=== PATIENT | female | born 1955 | race Caucasian/White ===

== ENCOUNTER 2018-11-23 20:48 | Observation (INO) | payer OTHER ==
[~2018-11-23] VITALS: Ht 167.6 cm; Wt 79.3 kg
[2018-11-23] MEDS: LURASIDONE HCL 40 MG TAB (LATUDA) PO SCH (18:00)
[2018-11-23] MEDS ORDERED: ONDANSETRON 4MG/2ML VIAL (J2405) IV ONE (21:30)
[2018-11-23] MEDS ORDERED: NS 1,000 ML IV ONE (21:30)
[2018-11-23 22:09] LABS: BASO % 0.3 % (0.0-1.0); EOS % 0.1 % (0.0-3.0); HEMATOCRIT 36.1 % (36.0-47.0); HEMOGLOBIN 12.9 g/dl (12.0-15.5); LYMPH # 0.6 10^3/uL (1.5-4.5); LYMPH % 7.3 % (24.0-44.0); MEAN CORPUSCULAR HEMOGLOBIN 30.3 pg (27.0-33.0); MEAN CORPUSCULAR HGB CONC 35.7 g/dl (32.0-36.5); MEAN CORPUSCULAR VOLUME 84.7 fl (80.0-96.0); MONO # 0.4 10^3/uL (0.0-0.8); MONO % 4.6 % (0.0-5.0); NEUTROPHILS # 6.8 10^3/uL (1.8-7.7); NEUTROPHILS % 87.1 % (36.0-66.0); PLATELET COUNT, AUTOMATED 268 10^3/uL (150-450); RED BLOOD COUNT 4.26 10^6/uL (4.00-5.40); WHITE BLOOD COUNT 7.8 10^3/uL (4.0-10.0)
[2018-11-23] MEDS ORDERED: ISOVUE-370 76% 100ML VIAL (Q9967) As Ordered ONE (22:28)
[2018-11-23 22:44] LABS: OSMOLALITY SERUM 247 MOSM/KG (280-301)
[2018-11-23 22:57] LABS: ALBUMIN 4.2 GM/DL (3.2-5.2); ALT/SGPT 23 U/L (12-78); BILIRUBIN,DIRECT 0.2 MG/DL (0.0-0.2); BILIRUBIN,TOTAL 0.6 MG/DL (0.2-1.0); CK-MB VALUE MASS 2.3 NG/ML (<3.6); CPK CREATINE PHOSPHOKINASE 201 U/L (26-192); ETHYL ALCOHOL (ETHANOL) < 0.003 % (0.000-0.010); LIPASE 101 U/L (73-393); MB/CK RELATIVE INDEX 1.14 (< OR =4); TOTAL PROTEIN 7.3 GM/DL (6.4-8.2); TROPONIN I < 0.02 NG/ML (< 0.10)
[2018-11-23] MEDS ORDERED: LORazepam 2 MG/ML VIAL (J2060) IV STA (23:19)
[2018-11-23 23:32] LABS: OSMOLALITY URINE 177 MOSM/KG (500-800)
[2018-11-23 23:33] LABS: APPEARANCE, URINE CLEAR (CLEAR); BACTERIA, URINE AUTO NEGATIVE (NEGATIVE); BILIRUBIN, URINE AUTO NEGATIVE (NEGATIVE); BLOOD, URINE BLOOD NEGATIVE (NEGATIVE); COLOR, URINE COLORLESS (YELLOW); GLUCOSE, URINE (UA) AUTO NEGATIVE (NEGATIVE); KETONE, URINE AUTO 1+ mg/dL (NEGATIVE); LEUKOCYTE ESTERASE, URINE AUTO NEGATIVE (NEGATIVE); NITRITE, URINE AUTO NEGATIVE (NEGATIVE); PROTEIN, URINE AUTO NEGATIVE (NEGATIVE); RBC, URINE AUTO 1 /HPF (0-3); SPECIFIC GRAVITY URINE AUTO 1.009 (1.002-1.035); SQUAMOUS EPITHELIAL CELL UR AU 0 /HPF (0-6); UROBILINOGEN, URINE AUTO 0.2 mg/dL (0.0-2.0); WBC, URINE AUTO 0 /HPF (0-3)
[2018-11-23] MEDS ORDERED: TRIL1TAB PO (23:42)
[2018-11-23] MEDS ORDERED: TRIA0.2571 PO (23:42)
[2018-11-23] MEDS ORDERED: LATU40TA PO (23:42)
[2018-11-23] MEDS ORDERED: ZADI1DRO OU (23:42)
[2018-11-23] MEDS ORDERED: BUSP30TA PO (23:42)
[2018-11-23] MEDS ORDERED: EXCETAB22 PO (23:42)
[2018-11-23] MEDS ORDERED: CETI10CH PO (23:42)
[2018-11-23] MEDS ORDERED: SYNT75TA PO (23:42)
[2018-11-23] MEDS ORDERED: PSEU120T3 PO (23:42)
[2018-11-23] MEDS ORDERED: ALL10TAB28 PO (23:43)
[2018-11-23] MEDS ORDERED: FLUTISP NARES (23:44)
[2018-11-23 23:52] LABS: AMPHETAMINES LEVEL URINE NEGATIVE (NEGATIVE); BARBITURATES URINE NEGATIVE (NEGATIVE); BENZODIAZEPINES URINE NEGATIVE (NEGATIVE); CANNABINOIDS URINE NEGATIVE (NEGATIVE); COCAINE METABOLITE URINE NEGATIVE (NEGATIVE); METHADONE URINE NEGATIVE (NEGATIVE); OPIATES URINE NEGATIVE (NEGATIVE); PHENCYCLIDINE URINE NEGATIVE (NEGATIVE); SODIUM,RANDOM URINE 55 MEQ/L
--- NOTE | 2018-11-24 00:05 | REPVR ---
EXAM: CT Abdomen and Pelvis With Contrast EXAM DATE/TIME: 11/23/2018 10:35 PM CLINICAL HISTORY: 63 years old, female; Nausea and vomiting; Abdominal pain; Generalized; Additional info: Pain, n/v/d TECHNIQUE: Imaging protocol: Axial computed tomography images of the abdomen and pelvis with intravenous contrast. Coronal and sagittal reformatted images were created and reviewed. Radiation optimization: All CT scans at this facility use at least one of these dose optimization techniques: automated exposure control; mA and/or kV adjustment per patient size (includes targeted exams where dose is matched to clinical indication); or iterative reconstruction. Contrast material: ISOVUE 370; Contrast volume: 100 ml; Contrast route: IV; COMPARISON: No relevant prior studies available. FINDINGS: Mediastinum: Minimal hiatal hernia. Liver: Anterior right hepatic cyst measuring 12 mm with a Hounsfield measurement of -4. Low attenuation area in the posterior right hepatic lobe measuring 15 mm with nodular peripheral enhancement consistent with a hemangioma. Gallbladder and bile ducts: There are a few small gallstones in the gallbladder. Pancreas: Normal. No ductal dilation. Spleen: 8mm low attenuation lesion in the posterior spleen which is nonspecific. Adrenals: Normal. No mass. Kidneys and ureters: Normal. No hydronephrosis. Stomach and bowel: Much of the colon is collapsed or contracted. Minimal wall thickening is not excluded. No pericolonic induration. Appendix: A normal appendix is seen. Intraperitoneal space: Normal. No free air. No significant fluid collection. Vasculature: Normal. No abdominal aortic aneurysm. Lymph nodes: Normal. No enlarged lymph nodes. Bladder: Unremarkable as visualized. Reproductive: Status post hysterectomy. Bones/joints: No acute fracture. No dislocation. Soft tissues: Unremarkable. IMPRESSION: 1. Question of minimal nonspecific pancolitis. 2. Status post hysterectomy. 3. Minimal cholelithiasis. 4. Minimal hiatal hernia Electronically signed by: Ovidio Encarnacion On 11/24/2018 00:05:07 AM
[2018-11-24] MEDS: NS 1,000 ML IV SCH ×2 (01:15→11:29)
--- NOTE | 2018-11-24 01:28 | HPEPDOC ---
General Date of Admission 11/24/2018 Date of Service: Nov 24, 2018 Attending Physician: VESTA ALVAREZ MD Chief Complaint The patient is a 63-year-old female admitted with a reason for visit of Nausea. History of Present Illness Patient is a 63-year-old female, primary medical history significant for hypothyroidism, PTSD, on multiple anti-psychiatric medications, presenting to the emergency room on account of sudden onset nausea, vomiting, diarrhea. In the emergency room, sodium was found to be critically low at 118. Urinalysis had 1+ ketones with a random osmolality of 177. CBC was within normal limits. CT abdomen and pelvis with contrast showed anterior right hepatic cyst measuring 12 mm. Question of minimal nonspecific pancolitis. Patient thinks she may have had some food poisoning. She describes nausea, vomiting, diarrhea, as really violent and lasting for a couple of hours. She had multiple episodes about 3 or 4 times at a point was lightheaded and dizzy and unable to get up from the floor and had to sit on the floor for a little while. She called her friend who called 911 and she was brought to the emergency room. At time of evaluation was still nauseous with some abdominal pain but states symptoms were improved. Home Medications Scheduled Buspirone HCl (Buspirone HCl) 30 Mg Tablet, 30 MG PO Q4H, (Reported) Cetirizine HCl (Cetirizine HCl) 10 Mg Tablet, 10 MG PO DAILY, (Reported) Levothyroxine Sodium (Synthroid) 75 Mcg Tablet, 75 MCG PO DAILY, (Reported) Lurasidone Hydrochloride (Latuda) 40 Mg Tablet, 20 MG PO QHS, (Reported) TAKES WITH 300 FRANCISCO JAVIER MEAL Oxcarbazepine (Trileptal) 300 Mg Tablet, 300 MG PO Q6H, (Reported) Triazolam (Triazolam) 0.25 Mg Tablet, 0.5 MG PO QHS, (Reported) Scheduled PRN Aspirin/Acetaminophen/Caffeine (Excedrin Migraine Geltab) 1 Each Tablet, 2 TABS PO Q6H PRN for HEADACHE, (Reported) Fluticasone Propionate (Fluticasone Propionate) 16 Gm [place].susp, 2 SPRAY NARES DAILY PRN for NASAL CONGESTION, (Reported) Ketotifen Fumarate (Zaditor) 5 Ml Drops, 1 DROP OU BID PRN for ITCHING, (Reported) Pseudoephedrine HCl (Sudafed 12 Hour) 120 Mg Tablet.er, 120 MG PO Q12H PRN for CONGESTION, (Reported) Allergies Coded Allergies: SEASONAL ALLERGIES (Verified Allergy, Unknown, 11/23/18) ziprasidone (Verified Allergy, Unknown, SWELLING, 11/23/18) Past Medical History Medical History Hypothyroidism. PTSD Surgical History Hysterectomy. Left hip removal Laparoscopic surgery D&C section Abdominal surgery Family History Father: ALS Mother: Renal disease, hyperlipidemia. Siblings: Diabetes mellitus, rheumatoid arthritis A-FIB/CHADSVASC A-FIB History Current/History of A-Fib/PAF?: No Current PO Anticoag Therapy: No Review of Systems Other systems A pertinent 10 point review of systems was completed, negative except as stated in the history of presenting illness Physical Examination Other physical findings GENERAL: NAD SKIN : Warm, dry intact HEENT: Atraumatic, normocephalic, PERRL, moist mucous membrane CARDIOVASCULAR: Regular rate and rhythm, S1S2, no JVD, trace edema, distal pulses + palpable RESP: CTAB, no accessory muscle use noted ABDOMEN: BS+ +distended non tender MS: no joint deformities NEURO: Alert and oriented x 3, CN2-12 grossly intact PSYCH: no anxiety or agitation, appropriate mood and affect. Vital Signs Vital Signs Date Time Temp Pulse Resp B/P (MAP) Pulse Ox O2 Delivery O2 Flow Rate FiO2 11/23/18 23:18 78 99 11/23/18 21:02 97.4 18 140/68 (92) Room Air Laboratory Data Labs 24H Laboratory Tests 2 11/23/18 21:52: Immature Granulocyte % (Auto) 0.6, White Blood Count 7.8, Red Blood Count 4.26, Hemoglobin 12.9, Hematocrit 36.1, Mean Corpuscular Volume 84.7, Mean Corpuscular Hemoglobin 30.3, Mean Corpuscular Hemoglobin Concent 35.7, Red Cell Distribution Width 11.6, Platelet Count 268, Neutrophils (%) (Auto) 87.1H, Lymphocytes (%) (Auto) 7.3L, Monocytes (%) (Auto) 4.6, Eosinophils (%) (Auto) 0.1, Basophils (%) (Auto) 0.3, Neutrophils # (Auto) 6.8, Lymphocytes # (Auto) 0.6L, Monocytes # (Auto) 0.4, Eosinophils # (Auto) 0.0, Basophils # (Auto) 0.0, Nucleated Red Blood Cells % (auto) 0.0, Osmolality 247L, Aspartate Amino Transf (AST/SGOT) 13, Alanine Aminotransferase (ALT/SGPT) 23, Alkaline Phosphatase 67, Total Bilirubin 0.6, Direct Bilirubin 0.2, Total Creatine Kinase 201H, Creatine Kinase MB 2.3, Creatine Kinase MB Relative Index 1.14, Troponin I < 0.02, Total Protein 7.3, Albumin 4.2, Albumin/Globulin Ratio 1.35, Lipase 101, Thyroid Stimulating Hormone (TSH) 1.070, Ethyl Alcohol Level < 0.003 11/23/18 21:58: POC Glucose (Misc Panel) 135H, POC Sodium (Misc Panel) 118*L, POC Potassium (Misc Panel) 3.6, POC Chloride (Misc Panel) 83L, POC Total CO2 (Misc Panel) 23.0, POC Blood Urea Nitrogen (Misc Panel 7L, POC Ionized Calcium (Misc Panel) 4.2L, POC Creatinine (Misc Panel) 0.6, POC Hematocrit (Misc Panel) 41.0 11/23/18 23:16: Urine Appearance CLEAR, Urine Color COLORLESS, Urine pH 8.0, Urine Specific [place] 1.009, Urine Protein NEGATIVE, Urine Glucose (UA) NEGATIVE, Urine Ketones 1+H, Urine Urobilinogen 0.2, Urine Bilirubin NEGATIVE, Urine Leukocyte Esterase NEGATIVE, Urine Blood NEGATIVE, Urine Nitrite NEGATIVE, Urine WBC (Auto) 0, Urine RBC (Auto) 1, Urine Hyaline Casts (Auto) 0, Urine Bacteria (Auto) NEGATIVE, Urine Squamous Epithelial Cells 0, Urine Sperm (Auto) , Urine Random Osmolality 177L, Urine Random Sodium 55, Urine Amphetamines Screen NEGATIVE, Urine Benzodiazepines Screen NEGATIVE, Urine Opiates Screen NEGATIVE, Urine Methadone Screen NEGATIVE, Urine Barbiturates Screen NEGATIVE, Urine Phencyclidine Screen NEGATIVE, Urine Cocaine Metabolite Screen NEGATIVE, Urine Cannabinoids Screen NEGATIVE CBC/BMP Laboratory Tests 11/23/18 21:52 Red Blood Count 4.26, Mean Corpuscular Volume 84.7, Mean Corpuscular Hemoglobin 30.3, Mean Corpuscular Hemoglobin Concent 35.7, Red Cell Distribution Width 11.6, Neutrophils (%) (Auto) 87.1 H, Lymphocytes (%) (Auto) 7.3 L, Monocytes (%) (Auto) 4.6, Eosinophils (%) (Auto) 0.1, Basophils (%) (Auto) 0.3, Neutrophils # (Auto) 6.8, Lymphocytes # (Auto) 0.6 L, Monocytes # (Auto) 0.4, Eosinophils # (Auto) 0.0, Basophils # (Auto) 0.0 Assessment/Plan Hyponatremia -Presenting sodium critically low at 118 -Seizure precautions -Admit to critical care floor -Hyponatremia correction with normal saline over 24 hours -Basic metabolic panel every 6 hours for monitoring of response and adjustment of therapy Acute gastroenteritis -With non specific pancolitis seen on imaging study -Abx therapy with Cipro/flagyl -Gastric rest -Nothing by mouth except meds -Continuous normal saline -Advance diet only as tolerated -reevaluate need for surgical input/evaluation if persisting or worsening symptoms PTSD -Continue all patient's medications -Anti-emetic as needed -Low dose anxiolytic intramuscularly till able to tolerate oral medication Hypothyroidism -Continue Synthroid Abdominal pain -Pain management as needed DVT prophylaxis -Lovenox daily Plan / VTE VTE Prophylaxis Ordered?: Yes [facility] Nov 24, 2018 01:28
[2018-11-24] MEDS ORDERED: MORPHINE 4 MG/ML 1ML VIAL/SYRINGE (J2270) IV PRN (01:30)
[2018-11-24] MEDS ORDERED: EXCEDRIN MIGRAINE TABLET PO PRN (01:30)
[2018-11-24] MEDS ORDERED: FLUTICASONE PROP 0.05% NASAL SPRAY 16 GM (FLONASE) NARES PRN (01:30)
[2018-11-24] MEDS: CIPROFLOXACIN 400 MG in APPROPRIATE DILUENT 1 EA IV SCH ×2 (03:11→14:51)
[2018-11-24 03:19] LABS: BLOOD UREA NITROGEN 7 MG/DL (7-18); CALCIUM LEVEL 8.3 MG/DL (8.8-10.2); CARBON DIOXIDE LEVEL 26 MEQ/L (21-32); CHLORIDE LEVEL 96 MEQ/L (98-107); CREATININE FOR GFR 0.72 MG/DL (0.55-1.30); GLOMERULAR FILTRATION RATE > 60.0 (>45); GLUCOSE, FASTING 112 MG/DL (70-100); POTASSIUM SERUM 3.8 MEQ/L (3.5-5.1); SODIUM LEVEL 131 MEQ/L (136-145)
[2018-11-24] MEDS: metroNIDAZOLE 500 MG in APPROPRIATE DILUENT 1 EA IV SCH ×3 (04:45→20:56)
[2018-11-24] MEDS: busPIRone 10 MG TAB PO SCH ×5 (05:00→20:55)
[2018-11-24] MEDS: LORazepam 2 MG/ML VIAL (J2060) IM PRN ×2 (05:49→11:23)
[2018-11-24] MEDS: ONDANSETRON 4MG/2ML VIAL (J2405) IV PRN ×2 (05:49→11:27)
[2018-11-24] MEDS: LEVOTHYROXINE 75MCG TABLET (0.075MG) PO SCH (06:00)
[2018-11-24] MEDS: OXcarbazepine 300 MG TAB PO SCH ×4 (06:00→17:58)
--- NOTE | 2018-11-24 07:18 | ECGEPIP ---
[facility] - ED Test Date: 2018-11-23 Pat Name: RAMONA PAGAN Department: Room: [place] [address] Gender: Female Project Systems Engineer: luz : [id number] Requested By: JEAN-PAUL Mondragon Order Number: [id number] Reading MD: Ton Kc Measurements Intervals [place] Rate: 70 P: 56 AK: 148 QRS: 4 QRSD: 90 T: 23 QT: 422 QTc: 456 Interpretive Statements SINUS RHYTHM POSSIBLE LEFT ATRIAL ENLARGEMENT NO PRIORS FOR COMPARISON Electronically Signed on 11-24-2018 7:18:22 EDT by Ton Kc
[2018-11-24 07:21] LABS: BLOOD UREA NITROGEN 6 MG/DL (7-18); CALCIUM LEVEL 8.5 MG/DL (8.8-10.2); CARBON DIOXIDE LEVEL 25 MEQ/L (21-32); CHLORIDE LEVEL 104 MEQ/L (98-107); CREATININE FOR GFR 0.75 MG/DL (0.55-1.30); GLOMERULAR FILTRATION RATE > 60.0 (>45); GLUCOSE, FASTING 101 MG/DL (70-100); POTASSIUM SERUM 4.2 MEQ/L (3.5-5.1); SODIUM LEVEL 136 MEQ/L (136-145)
[2018-11-24] MEDS: CETIRIZINE (ZyrTEC) 10 MG TAB PO SCH (09:59)
[2018-11-24] MEDS: ENOXAPARIN 40 MG/0.4 ML SYRINGE (J1650) SC SCH (10:00)
[2018-11-24 14:08] LABS: BLOOD UREA NITROGEN 7 MG/DL (7-18); CALCIUM LEVEL 8.2 MG/DL (8.8-10.2); CARBON DIOXIDE LEVEL 25 MEQ/L (21-32); CHLORIDE LEVEL 105 MEQ/L (98-107); CREATININE FOR GFR 0.87 MG/DL (0.55-1.30); GLOMERULAR FILTRATION RATE > 60.0 (>45); GLUCOSE, FASTING 93 MG/DL (70-100); POTASSIUM SERUM 3.8 MEQ/L (3.5-5.1); SODIUM LEVEL 135 MEQ/L (136-145)
[2018-11-24 15:55] VITALS: BP 136/66
[2018-11-24] MEDS ORDERED: SLF 3 ML SYR IV PRN (16:15)
--- NOTE | 2018-11-24 16:16 | IPNPDOC ---
Text Note Date of Service The patient was seen on 11/24/18. NOTE S: patient admitted with N/V and hypnatremia. see H&P O: Vitals as below General: pleasant NAD AAOx3 NEURO: CN3-12 intact no gross motor or sensory deficits HRRR LCTA A/P: Hyponatremia - d/c IVF as sodium has increased rapidly. no signs of neurological compromise Actue Gastroenteritis -Abx therapy with Cipro/flagyl Change from ICU to MedSurg status. if remains neurologically intact possible d/c in AM Item Value Date Time Sodium Level 135 MEQ/L L 11/24/18 1329 Sodium Level 136 MEQ/L 11/24/18 0639 Sodium Level 131 MEQ/L L 11/24/18 0253 Potassium Level 3.8 MEQ/L 11/24/18 1329 Blood Urea Nitrogen 7 MG/DL 11/24/18 1329 Creatinine 0.87 MG/DL 11/24/18 1329 VS,Fishbone, I+O VS, Fishbone, I+O Laboratory Tests 11/23/18 21:52 Red Blood Count 4.26, Mean Corpuscular Volume 84.7, Mean Corpuscular Hemoglobin 30.3, Mean Corpuscular Hemoglobin Concent 35.7, Red Cell Distribution Width 11.6, Neutrophils (%) (Auto) 87.1 H, Lymphocytes (%) (Auto) 7.3 L, Monocytes (%) (Auto) 4.6, Eosinophils (%) (Auto) 0.1, Basophils (%) (Auto) 0.3, Neutrophils # (Auto) 6.8, Lymphocytes # (Auto) 0.6 L, Monocytes # (Auto) 0.4, Eosinophils # (Auto) 0.0, Basophils # (Auto) 0.0 11/24/18 02:53 Calcium Level 8.3 L 11/24/18 06:39 Calcium Level 8.5 L 11/24/18 13:29 Calcium Level 8.2 L Vital Signs Date Time Temp Pulse Resp B/P (MAP) Pulse Ox O2 Delivery O2 Flow Rate FiO2 11/24/18 15:19 96 97 11/24/18 13:15 16 133/57 (82) Room Air 11/24/18 04:36 98.2 JIM MANNING DO Nov 24, 2018 15:49
[2018-11-24 17:05] VITALS: BP 147/86
[2018-11-24] MEDS: LURASIDONE HCL 40 MG TAB (LATUDA) PO SCH (17:57)
[2018-11-24 18:00] VITALS: BP 135/65
[2018-11-24 19:05] LABS: BLOOD UREA NITROGEN 6 MG/DL (7-18); CALCIUM LEVEL 8.3 MG/DL (8.8-10.2); CARBON DIOXIDE LEVEL 22 MEQ/L (21-32); CHLORIDE LEVEL 104 MEQ/L (98-107); CREATININE FOR GFR 0.85 MG/DL (0.55-1.30); GLOMERULAR FILTRATION RATE > 60.0 (>45); GLUCOSE, FASTING 86 MG/DL (70-100); POTASSIUM SERUM 3.5 MEQ/L (3.5-5.1); SODIUM LEVEL 132 MEQ/L (136-145)
[2018-11-24] MEDS: SLF 3 ML SYR IV SCH (20:56)
[2018-11-24 22:00] VITALS: BP 110/55
[2018-11-25] MEDS: busPIRone 10 MG TAB PO SCH ×3 (00:43→08:13)
[2018-11-25] MEDS: OXcarbazepine 300 MG TAB PO SCH ×2 (00:43→05:51)
[2018-11-25 01:51] LABS: BLOOD UREA NITROGEN 11 MG/DL (7-18); CALCIUM LEVEL 8.3 MG/DL (8.8-10.2); CARBON DIOXIDE LEVEL 27 MEQ/L (21-32); CHLORIDE LEVEL 103 MEQ/L (98-107); CREATININE FOR GFR 0.89 MG/DL (0.55-1.30); GLOMERULAR FILTRATION RATE > 60.0 (>45); GLUCOSE, FASTING 92 MG/DL (70-100); POTASSIUM SERUM 4.1 MEQ/L (3.5-5.1); SODIUM LEVEL 135 MEQ/L (136-145)
[2018-11-25 02:00] VITALS: BP 135/61
[2018-11-25] MEDS: CIPROFLOXACIN 400 MG in APPROPRIATE DILUENT 1 EA IV SCH (03:13)
[2018-11-25] MEDS: metroNIDAZOLE 500 MG in APPROPRIATE DILUENT 1 EA IV SCH (04:29)
[2018-11-25] MEDS: SLF 3 ML SYR IV SCH (05:51)
[2018-11-25] MEDS: LEVOTHYROXINE 75MCG TABLET (0.075MG) PO SCH (05:51)
[2018-11-25 06:00] VITALS: BP 115/63
[2018-11-25 07:53] LABS: BLOOD UREA NITROGEN 9 MG/DL (7-18); CALCIUM LEVEL 8.1 MG/DL (8.8-10.2); CARBON DIOXIDE LEVEL 26 MEQ/L (21-32); CHLORIDE LEVEL 102 MEQ/L (98-107); CREATININE FOR GFR 0.84 MG/DL (0.55-1.30); GLOMERULAR FILTRATION RATE > 60.0 (>45); GLUCOSE, FASTING 86 MG/DL (70-100); SODIUM LEVEL 134 MEQ/L (136-145)
[2018-11-25] MEDS: CETIRIZINE (ZyrTEC) 10 MG TAB PO SCH (08:12)
[2018-11-25] MEDS: ENOXAPARIN 40 MG/0.4 ML SYRINGE (J1650) SC SCH (08:13)
[2018-11-25 10:00] VITALS: BP 135/66
[2018-11-25] MEDS ORDERED: FLAG500T PO (11:09)
[2018-11-25] MEDS ORDERED: CIPR-249 PO (11:09)
--- NOTE | 2018-11-25 16:08 | DS.PDOC ---
Discharge Summary General Date of Admission Nov 23, 2018 at 20:49 Date of Discharge 11/25/18. Discharge Summary PROCEDURES PERFORMED DURING STAY: None. ADMITTING/DISCHARGE DIAGNOSES: Abd pain with N/V/D 2/2 Pancolitis ?Hyponatremia 2/2 Lab Error on Draw History of PTSD COMPLICATIONS/CHIEF COMPLAINT: N/V/D and Abd Pain. HISTORY OF PRESENT ILLNESS: . 63-year-old female with past medical. Hypothyroidism, anxiety/depression, and PTSD presents to the ER with a chief complaint of sudden onset of nausea, vomiting, and diarrhea. The patient states that she is fructose intolerance and follows with GI on a regular basis. States that she has had multiple colonoscopies over the years. At this time, the patient states that she had eaten foods that she normally does not eat. She reports having 3/4 episodes of nonbloody emesis during this time. She denied any fevers, chest pain, palpitations, shortness of breath, recent travel, or any sick contacts. In the ER, a CT scan of the abdomen/pelvis revealed nonspecific pancolitis. In addition, a [id number] serum sodium level was noted to be 118. The patient was admitted to the hospitalist service for further evaluation and management. During hospitalization, the patient was treated with IV antibiotics and her symptoms improved. She has been tolerating a by mouth diet without any acute complaints. As for the patient's hyponatremia, the patient was given only a 1 L bolus of normal saline in the ER and a repeat serum sodium level 5 hours later was noted to be 131. She did not have any significant or massive diuresis following the IVF hydration and change in sodium. During the patient's presentation and hospitalization she did not display any neurological signs or symptoms. The patient's discrepancy in serum sodium levels was thought to be due to lab error from the [id number] blood draw. The patient's IV fluids were stopped and since then her serum sodium has remained 131-136. I did assume the care of this patient at the 33 hr dwaine of her hospitalization when her sodium had been near normalized for over 24 hrs. I did discuss the case with Dr. Yap of Nephrology via telephone at the time, and he agrees that the initial serum sodium level was likely erroneous. He does not recommend sodium lowering at this time. I did discuss the lab error with the patient and educated her about neurological signs/symptoms to look out for over the next week in case she did have any neurological manifestations due to rapid sodium over-correction. Risks were discussed in depth, and the patient verbalized understanding of the same. All questions were answered to her satisfaction. She was counseled to return to the ER for any acute emergencies. I have asked the patient to follow- up with her primary care physician within 7 days. DISCHARGE MEDICATIONS: Please see below. ALLERGIES: Please see below. PHYSICAL EXAMINATION ON DISCHARGE: VITAL SIGNS: Please see below. GENERAL: NAD SKIN : Warm, dry intact HEENT: Atraumatic, normocephalic, PERRL, moist mucous membrane CARDIOVASCULAR: Regular rate and rhythm, S1S2, no JVD, trace edema, distal pulses + palpable RESP: CTAB, no accessory muscle use noted ABDOMEN: Soft, nontender, nondistended NEURO: Alert and oriented x 3, CN2-12 grossly intact PSYCH: no anxiety or agitation, appropriate mood and affect. LABORATORY DATA: Please see below. IMAGING: EXAM: CT Abdomen and Pelvis With Contrast EXAM DATE/TIME: 11/23/2018 10:35 PM CLINICAL HISTORY: 63 years old, female; Nausea and vomiting; Abdominal pain; Generalized; Additional info: Pain, n/v/d TECHNIQUE: Imaging protocol: Axial computed tomography images of the abdomen and pelvis with intravenous contrast. Coronal and sagittal reformatted images were created and reviewed. Radiation optimization: All CT scans at this facility use at least one of these dose optimization techniques: automated exposure control; mA and/or kV adjustment per patient size (includes targeted exams where dose is matched to clinical indication); or iterative reconstruction. Contrast material: ISOVUE 370; Contrast volume: 100 ml; Contrast route: IV; COMPARISON: No relevant prior studies available. FINDINGS: Mediastinum: Minimal hiatal hernia. Liver: Anterior right hepatic cyst measuring 12 mm with a Hounsfield measurement of -4. Low attenuation area in the posterior right hepatic lobe measuring 15 mm with nodular peripheral enhancement consistent with a hemangioma. Gallbladder and bile ducts: There are a few small gallstones in the gallbladder. Pancreas: Normal. No ductal dilation. Spleen: 8mm low attenuation lesion in the posterior spleen which is nonspecific. Adrenals: Normal. No mass. Kidneys and ureters: Normal. No hydronephrosis. Stomach and bowel: Much of the colon is collapsed or contracted. Minimal wall thickening is not excluded. No pericolonic induration. Appendix: A normal appendix is seen. Intraperitoneal space: Normal. No free air. No significant fluid collection. Vasculature: Normal. No abdominal aortic aneurysm. Lymph nodes: Normal. No enlarged lymph nodes. Bladder: Unremarkable as visualized. Reproductive: Status post hysterectomy. Bones/joints: No acute fracture. No dislocation. Soft tissues: Unremarkable. IMPRESSION: 1. Question of minimal nonspecific pancolitis. 2. Status post hysterectomy. 3. Minimal cholelithiasis. 4. Minimal hiatal hernia PROGNOSIS: Fair ACTIVITY: As tolerated. DIET: As tolerated DISCHARGE PLAN: DISPOSITION: Home, Self-Care. DISCHARGE INSTRUCTIONS: Follow-up with PCP within 7 days. Return to the ER for any acute emergencies. DISCHARGE CONDITION: Stable. TIME SPENT ON DISCHARGE: Greater than 30 minutes. Vital Signs/I&Os Vital Signs Date Time Temp Pulse Resp B/P (MAP) Pulse Ox O2 Delivery O2 Flow Rate FiO2 11/25/18 10:00 98.8 63 15 135/66 (89) 96 11/24/18 13:15 Room Air I&O- Last 24 Hours up to 6 AM 11/25/18 05:59 Intake Total 940 ml Output Total 0 ml Balance 940 ml Laboratory Data Labs 24H Laboratory Tests 2 11/24/18 18:22: Anion Gap 6L, Glomerular Filtration Rate > 60.0, Blood Urea Nitrogen 6L, Crea tinine 0.85, Sodium Level 132L, Potassium Level 3.5, Chloride Level 104, Carbon Dioxide Level 22, Calcium Level 8.3L 11/25/18 01:20: Anion Gap 5L, Glomerular Filtration Rate > 60.0, Blood Urea Nitrogen 11#, Creatinine 0.89, Sodium Level 135L, Potassium Level 4.1, Chloride Level 103, Carbon Dioxide Level 27, Calcium Level 8.3L 11/25/18 07:10: Anion Gap 6L, Glomerular Filtration Rate > 60.0, Blood Urea Nitrogen 9, Creatinine 0.84, Sodium Level 134L, Potassium Level 4.0, Chloride Level 102, Carbon Dioxide Level 26, Calcium Level 8.1L CBC/BMP Laboratory Tests 11/24/18 18:22 Calcium Level 8.3 L 11/25/18 01:20 Calcium Level 8.3 L 11/25/18 07:10 Calcium Level 8.1 L Discharge Medications Scheduled Buspirone HCl (Buspirone HCl) 30 Mg Tablet, 30 MG PO Q4H, (Reported) Cetirizine HCl (Cetirizine HCl) 10 Mg Tablet, 10 MG PO DAILY, (Reported) Ciprofloxacin HCl (Cipro) 500 Mg Tablet, 1 TAB PO BID Levothyroxine Sodium (Synthroid) 75 Mcg Tablet, 75 MCG PO DAILY, (Reported) Lurasidone Hydrochloride (Latuda) 40 Mg Tablet, 20 MG PO QHS, (Reported) TAKES WITH 300 FRANCISCO JAVIER MEAL Metronidazole (Flagyl) 500 Mg Tablet, 500 MG PO Q8H Oxcarbazepine (Trileptal) 300 Mg Tablet, 300 MG PO Q6H, (Reported) Triazolam (Triazolam) 0.25 Mg Tablet, 0.5 MG PO QHS, (Reported) Scheduled PRN Aspirin/Acetaminophen/Caffeine (Excedrin Migraine Geltab) 1 Each Tablet, 2 TABS PO Q6H PRN for HEADACHE, (Reported) Fluticasone Propionate (Fluticasone Propionate) 16 Gm [place].susp, 2 SPRAY NARES DAILY PRN for NASAL CONGESTION, (Reported) Ketotifen Fumarate (Zaditor) 5 Ml Drops, 1 DROP OU BID PRN for ITCHING, (Reported) Pseudoephedrine HCl (Sudafed 12 Hour) 120 Mg Tablet.er, 120 MG PO Q12H PRN for CONGESTION, (Reported) Allergies Coded Allergies: SEASONAL ALLERGIES (Verified Allergy, Unknown, 11/23/18) ziprasidone (Verified Allergy, Unknown, SWELLING, 11/23/18) RICHARD PARHAM MD Nov 25, 2018 16:08
== END 2018-11-25 12:03 | disposition home or self-care (01) ==
LOC: M ED 20:48 → M ED INP 20:49 → M PCU 11-24 15:49 → M MSPAV 11-24 17:02
PROVIDERS: ADMIT Internal Medicine; ATTEND Internal Medicine
DX: E87.1 Hypo-osmolality and hyponatremia (principal); K52.9 Noninfective gastroenteritis and colitis, unspecified; K51.00 Ulcerative (chronic) pancolitis without complications; E03.9 Hypothyroidism, unspecified; F43.10 Post-traumatic stress disorder, unspecified; F41.9 Anxiety disorder, unspecified; F32.9 Major depressive disorder, single episode, unspecified; K44.9 Diaphragmatic hernia without obstruction or gangrene; Z79.82 Long term (current) use of aspirin; Z79.899 Other long term (current) drug therapy
CPT/HCPCS: 36415; 74177; 80047; 80048; 80076; 80307; 81001; 82550; 82553; 83690; 83930; 83935; 84300; 84443; 84484; 85025; 93005; 96361; 96365; 96366; 96372; 96375; 96376; 99285; G0480; J0744; J1650; J2060; J2405; Q9967